=== PATIENT | male | born 1995 | race Caucasian/White ===

== ENCOUNTER 2017-03-22 20:15 | Emergency (ER) | payer SELFPAY ==
--- NOTE | ~2017-03-22 | CR63 ---
[facility] A Service of [facility] RADIOLOGY TEXT RESULTS PATIENT: VANESSA REVELES JR LOCATION: SED : 95 UNIT #: [id number] AGE: [address]: Sarah Cevallos PAC SEX: M ORDER DR: [id number] [place] [address] [id number] E MR#: [id number] Acc #: [id number] NAME: VANESSA REVELES JR : 1995 SEX: M STUDY DATE/TIME: 03/22/2017 21:56 UNIT: SED ROOM: STUDY DESCRIPTION: CR Chest 2 View Attending Physician: Sarah Cevallos Pa-C Ordering Physician: Sarah Cevallos Pa-C Primary Care Physician: Primary Care Physician No MEDICAL IMAGING REPORT This report is preliminary unless electronic signature is present. EXAM PA and lateral chest 2 views 03/22/2017 COMPARISON None. HISTORY Left flank pain for about 3 hours. Back pain. FINDINGS PA and lateral examination of the chest upright shows a good expansion of the parenchyma with a normal distribution of the pulmonary vascularity. There is no indication of congestion, effusion, infiltrate, tumor, or nodular density. The pleural reflections and diaphragmatic contours are normal. The cardiac silhouette and mediastinal anatomy is within normal limits. IMPRESSION Normal chest. Dictated by... Krystian Hunt M.D. THIS IS AN ELECTRONICALLY VERIFIED REPORT Krystian Hunt M.D. at 03/25/2017 5:35 PM TEV/huis TD: 03/23/2017 07:17 [facility] A Service of [facility] RADIOLOGY TEXT RESULTS PATIENT: VANESSA REVELES JR LOCATION: SED : 95 UNIT #: [id number] AGE: [address]: Sarah Cevallos PAC SEX: M ORDER DR: DAISY #: [id number] MEDICAL IMAGING REPORT Page 1 of 1
--- NOTE | ~2017-03-22 | CT4 ---
[facility] A Service [facility] RADIOLOGY TEXT RESULTS PATIENT: VANESSA REVELES JR LOCATION: SED : 95 UNIT #: [id number] AGE: [address]: Sarah Cevallos PAC SEX: M ORDER DR: [id number] [address] [address] [id number] E MR#: [id number] Acc #: [id number] NAME: VANESSA REVELES JR : 1995 SEX: M STUDY DATE/TIME: 03/22/2017 22:02 UNIT: SED ROOM: STUDY DESCRIPTION: CT Abd and Pelv Wo Cont Attending Physician: Sarah Cevallos Pa-C Ordering Physician: Sarah Cevallos Pa-C Primary Care Physician: Primary Care Physician No MEDICAL IMAGING REPORT This report is preliminary unless electronic signature is present. EXAM CT abdomen and pelvis without contrast INDICATION Left flank pain tonight. PROCEDURE Unenhanced CT of the abdomen and pelvis. This CT exam was performed with one or more of the following radiation dose reduction techniques: automatic exposure control, adjustment of mA and/or kV according to patient size, and iterative reconstruction. COMPARISON None FINDINGS ABDOMEN WITHOUT CONTRAST: Included lung bases are clear. Liver, spleen, adrenal glands, pancreas, gallbladder have an unremarkable unenhanced appearance. The bowel loops are nondilated. Appendix is normal. No radiodense urinary system calculus or hydronephrosis. PELVIS WITHOUT CONTRAST: No radiodense bladder calculus. No pelvic mass or fluid. No aggressive appearing bone lesion. IMPRESSION No acute findings. No radiodense urinary system calculus or hydronephrosis. Appendix is normal. Dictated by... Jake Benoit M.D. [facility] A Service of [facility] RADIOLOGY TEXT RESULTS PATIENT: VANESSA REVELES JR LOCATION: SED : 95 UNIT #: [id number] AGE: [address]: Sarah Cevallos PAC SEX: M ORDER DR: THIS IS AN ELECTRONICALLY VERIFIED REPORT Jake Benoit M.D. at 03/23/2017 10:28 PM Kole TD: 03/23/2017 07:56 JOB #: [id number] MEDICAL IMAGING REPORT Page 1 of 1
[~2017-03-22 20:15] MED LIST: ANTISEPTIC SKI237 ML TOP; BACTRIM DS TABL1 TA1 PO; BACTRIM DS TABL1 TA2 PO; CLINDAMYCIN HC300 MG PO; FLEXERIL10 MG PO; KEFLEX500 M1 PO; LORTAB 5/500 TA1 TA1 PO; NAPROSYN500 MG PO; NO MEDICATIONS
[2017-03-22 20:42] LABS: BASOPHIL% 0.4 % (0-2.5); EOSINOPHIL# 0.1 X10e3 (0-0.7); EOSINOPHIL% 0.9 % (0.0-7.0); HEMATOCRIT 44.2 % (38.0-50.0); HEMOGLOBIN 15.1 gm/dL (13.0-16.0); LYMPHOCYTE# 1.6 X10e3 (1.0-3.5); LYMPHOCYTE% 12.5 % (17.0-45.0); MEAN CELL VOLUME 93.4 FL (83-96); MEAN CORPUSCULAR HEMOGLOBIN 31.8 PG (28-34); MEAN PLATELET VOLUME 8.9 FL (6.5-11.5); MONOCYTE# 0.8 X10e3 (0-1.0); MONOCYTE% 6.2 % (3.0-12.0); NEUTROPHIL# 10.2 X10e3 (1.5-7.1); PLATELET COUNT 180 X10e3 (140-420); RED BLOOD COUNT 4.74 X10e (3.90-5.60); RED CELL DISTRIBUTION WIDTH 12.7 % (11.0-15.5); WHITE BLOOD COUNT 12.8 X10e3 (4.0-10.5)
[2017-03-22 20:46] LABS: DIFF IND NO
[2017-03-22 21:00] LABS: ALBUMIN SERUM 5.1 g/dL (3.5-5.0); BILIRUBIN, DIRECT 0.1 mg/dL (0.0-0.2); BILIRUBIN,INDIRECT 0.2 mg/dL (0.0-0.9); BILIRUBIN,TOTAL 0.3 mg/dL (0.2-2.0); BUN/CREATININE RATIO 15.71; CALCIUM SERUM 9.3 mg/dL (8.4-10.2); CREATININE SERUM 0.7 mg/dL (0.6-1.4); POTASSIUM 4.2 mmol/L (3.5-5.1); PROTEIN TOTAL SERUM 7.7 g/dL (6.0-8.3)
[2017-03-22 21:23] LABS: URINE SOURCE CLEAN CATCH
[2017-03-22 21:26] LABS: URINE APPEARANCE CLEAR; URINE BILIRUBIN NEG (NEG); URINE BLOOD 1+ (NEG); URINE COLOR YELLOW; URINE GLUCOSE NEG (NORM); URINE KETONE NEG (NEG); URINE LEUKOCYTE ESTERASE NEG (NEG); URINE NITRATE NEG (NEG); URINE PH 6.5 (5-8); URINE PROTEIN 1+ (NEG); URINE SPECIFIC GRAVITY 1.025 (1.003-1.035); URINE UROBILINOGEN 0.2 MG/DL (NORM)
[2017-03-22 21:29] LABS: MICRO INDICATED? YES
[2017-03-22 21:30] LABS: URINE BACTERIA NEG (NEG); URINE MUCUS PRESENT; URINE RBC 0-2 /[HPF] (0-2); URINE SQUAMOUS EPITHELIAL CELL FEW /[HPF]; URINE WBC 0-2 /[HPF] (0-5)
[2017-03-22 21:36] LABS: AMPHETAMINE NEG (NEG); BARBITURATES NEG (NEG); BENZODIAZEPINES NEG (NEG); COCAINE NEG (NEG); MARIJUANA POS (NEG); OPIATES POS (NEG); TRICYCLIC ANTIDEPRESSANTS NEG (NEG); U METHADONE NEG (NEG)
== END 2017-03-22 23:29 | disposition home or self-care (01) ==
LOC: SED 20:15
PROVIDERS: Physician Assistant Medical
DX: R10.9 Unspecified abdominal pain (principal); F17.210 Nicotine dependence, cigarettes, uncomplicated
CPT/HCPCS: 36415; 71020; 74176; 80048; 80076; 80307; 81003; 85025; 96361; 96374; 99284; J1885